=== PATIENT | female | born 1990 ===

== ENCOUNTER 2018-11-28 18:17 | Inpatient (IN) | payer OTHER ==
[2018-11-28] MEDS ORDERED: Morphine 4 MG/ML VIAL IVP STA (20:02)
[2018-11-28] MEDS ORDERED: Sodium Chloride 0.9% 1,000 ML IV STA (20:02)
[2018-11-28 20:37] LABS: SQUAMOUS EPITHIAL 3 /hpf (0-5); URINE BILIRUBIN NEGATIVE (NEGATIVE); URINE BLOOD SMALL (NEGATIVE); URINE CLARITY SLIGHTY-CLOUDY (Clear); URINE COLOR YELLOW (YELLOW); URINE GLUCOSE (UA) NEG (NEGATIVE); URINE LEUKOCYTE ESTERASE MOD Leu/uL (Negative); URINE PROTEIN 30 mg/dL (NEGATIVE); URINE UROBILINOGEN 0.2-1.0 mg/dL (0.2-1.0)
--- NOTE | 2018-11-28 20:45 | ED PDOC ---
HPI: Abdomen Time Seen by Provider: 11/28/18 19:50 Chief Complaint (Nursing): Lower Extremity Problem/Injury Chief Complaint (Provider): Abdominal Pain History Per: Patient History/Exam Limitations: no limitations Onset/Duration Of Symptoms: Days (x 1) Current Symptoms Are (Timing): Still Present Location Of Pain/Discomfort: RLQ, LLQ Quality Of Discomfort: "Pain" Associated Symptoms: Nausea Additional Complaint(s): 28 year old female with a history of ovarian cyst presents to the ED with wor sening lower abdominal pain. Patient is scheduled for surgery with Dr. Guevara to remove ovarian cyst, but pain became severe today and he decided to send her here for evaluation. She is also complaining of nausea. Provider spoke to Dr. Guevara prior to seeing patient and he requested labs, MRI, bowel prep and NPO prior to surgery. Denies vomiting. PMD: Dr. Guevara Past Medical History Reviewed: Historical Data, Nursing Documentation, Vital Signs Vital Signs: Last Vital Signs Temp 99.0 F 11/28/18 19:54 Pulse 73 11/28/18 19:54 Resp 16 11/28/18 19:54 BP 117/73 11/28/18 19:54 Pulse Ox 100 11/28/18 19:54 - Medical History PMH: Denies: Chronic Kidney Disease Other PMH: endometriosis and ovarian cysts - Surgical History Surgical History: No Surg Hx - Family History Family History: States: Unknown Family Hx - Social History Current smoker - smoking cessation education provided: Yes (Light Smoker < 10 cigarettes per day) - Immunization History Hx Tetanus Toxoid Vaccination: No Hx Influenza Vaccination: No Hx Pneumococcal Vaccination: No - Home Medications Home Medications: Ambulatory Orders Medication Instructions Recorded oxyCODONE/Acetaminophen [Percocet 1 ea PO Q4 PRN #30 tab 11/29/18 5/325 mg Tab] - Allergies Allergies/Adverse Reactions: Allergies Allergy/AdvReac Type Severity Reaction Status Date / Time No Known Allergies Allergy Verified 11/28/18 20:01 Review of Systems ROS Statement: Except As Marked, All Systems Reviewed And Found Negative Gastrointestinal: Positive for: Nausea, Abdominal Pain (worsening lower abdominal pain). Negative for: Vomiting, Diarrhea, Constipation, Melena, Hematochezia, Hematemesis Physical Exam - Reviewed Nursing Documentation Reviewed: Yes Vital Signs Reviewed: Yes - Physical Exam Appears: Positive for: No Acute Distress, Uncomfortable Head Exam: Positive for: ATRAUMATIC, NORMAL INSPECTION, NORMOCEPHALIC Skin: Positive for: Normal Color, Warm, Dry Eye Exam: Positive for: EOMI, Normal appearance, PERRL Neck: Positive for: Normal, Painless ROM, Supple Cardiovascular/Chest: Positive for: Regular Rate, Rhythm. Negative for: Murmur Respiratory: Positive for: Normal Breath Sounds. Negative for: Wheezing, Respiratory Distress Gastrointestinal/Abdominal: Positive for: Tenderness (lower abdominal tenderness bilaterally). Negative for: Mass, Distended Back: Positive for: Normal Inspection. Negative for: L CVA Tenderness, R CVA Tenderness Extremity: Positive for: Normal ROM (x 4). Negative for: Deformity, Swelling Neurologic/Psych: Positive for: Alert, Oriented (x 3). Negative for: Motor/Sensory Deficits - Laboratory Results Result Diagrams: 11/28/18 20:20 11/28/18 20:20 - ECG O2 Sat by Pulse Oximetry: 100 (RA) Pulse Ox Interpretation: Normal Medical Decision Making Medical Decision Makin:02 MDM: workup for rupture ovarian cyst Surgery in the morning Unable to get MRI overnight. Therefore, CT of Abdomen and pelvis ordered. Dr. Guevara is aware of this. Labs, NPO diet, morphine for pain control. 22:36 Labs reviewed and reveal UTI. Will start patient on Bactrim. Labs otherwise stable. She just went to CT. Upon return, will begin bowel prep. Admitted under Dr. Guevara. Pain controlled at this time. Scribe Attestation: Documented by Triny Bailey acting as a scribe for Roxi Melgar MD Provider Scribe Attestation: All medical record entries made by the Scribe were at my direction and personally dictated by me. I have reviewed the chart and agree that the record accurately reflects my personal performance of the history, physical exam, medical decision making, and the department course for this patient. I have also personally directed, reviewed, and agree with the discharge instructions and disposition. Disposition - Clinical Impression Clinical Impression: Ovarian cyst, Urinary tract infection - Patient ED Disposition Is Patient to be Admitted: Yes - Disposition Disposition Time: 22:36 Condition: FAIR - Pt Status Changed To: Hospital Disposition Of: Inpatient - Admit Certification Admit to Inpatient:: After my assessment, the patient will require hospitalization for at least two midnights. This is because of the severity of symptoms shown, intensity of services needed, and/or the medical risk in this patient being treated as an outpatient.
[2018-11-28] MEDS ORDERED: Morphine 4 MG/ML VIAL ONE (20:52)
[2018-11-28 21:13] LABS: PROTHROMBIN TIME 11.7 Seconds (9.8-13.1)
[2018-11-28 21:14] LABS: BASO % 0.4 % (0.0-2.0); EOS # 0.1 K/uL (0.0-0.7); EOS % 1.2 % (0.0-4.0); HEMOGLOBIN 13.6 g/dL (12.0-16.0); LYMPH # 2.1 K/uL (1.0-4.3); LYMPH % 38.4 % (20.0-40.0); MEAN CELL VOLUME 91.7 fl (81.0-99.0); MEAN CORPUSCULAR HEMOGLOBIN 30.1 pg (27.0-31.0); MEAN CORPUSCULAR HGB CONC 32.9 g/dL (33.0-37.0); MEAN PLATELET VOLUME 10.2 fl (7.2-11.7); MONO # 0.3 K/uL (0.0-0.8); MONO % 6.2 % (0.0-10.0); NEUT # 2.9 K/uL (1.8-7.0); NEUT % 53.8 % (50.0-75.0); NRBC % 0.2 % (0.0-0.0); RBC 4.5 Mil/uL (3.80-5.20); RED CELL DISTRIBUTION WIDTH 13.9 % (11.5-14.5); WHITE BLOOD COUNT 5.3 K/uL (4.8-10.8)
[2018-11-28 21:15] LABS: PARTIAL THROMBOPLASTIN TIME 33.4 Seconds (25.6-37.1)
[2018-11-28 21:31] LABS: BLOOD UREA NITROGEN 16 mg/dl (7-17); CALCIUM 9.1 mg/dL (8.4-10.2); GFR NON-AFRICAN AMERICAN > 60
[2018-11-28] MEDS ORDERED: Tmp-Smz 800 mg-160 mg DS Tab PO STA (22:12)
[2018-11-28] MEDS ORDERED: Magnesium Citrate Oral SOL (300 ml) PO ONE (22:57)
[2018-11-28] MEDS ORDERED: Sodium Chloride 0.9% 50 ML IV ONE (23:00)
[2018-11-28] MEDS ORDERED: Iohexol 300 100 ML IJ ONE (23:00)
[2018-11-28] MEDS ORDERED: Tmp-Smz 800 mg-160 mg DS Tab ONE (23:27)
[2018-11-28] MEDS ORDERED: Magnesium Citrate Oral SOL (300 ml) ONE (23:29)
[2018-11-29] MEDS ORDERED: Lactated Ringer's 1,000 ML IV SCH ×2 (02:15→15:45)
[2018-11-29] MEDS: Morphine 4 MG/ML VIAL IVP PRN (02:43)
--- NOTE | 2018-11-29 09:19 | CARD ---
APPROVED REPORT Date of service: 11/28/2018 EKG Measurement Heart [id number] <Conclusion> Normal sinus rhythm Normal ECG
--- NOTE | 2018-11-29 09:40 | CP.PCM.HP ---
History of Present Illness - History of Present Illness History of Present Illness: H&P for Dr. Guevara 28F pmhx significant for severe periods w/ heavy flow starting at age 11 presents to [facility] ED for continued abdominal pain and numbness and tingling going down the right leg that started 1 week ago. Symptoms have progressively been worsening. Abdominal pain has been worked up and was given numerous medications, however symptoms have not subsided. Pain is described as severe throughout the entire abdomen localize din lower abdomen. Patient states such severe body pain an aches even while walking; to help her breathe she has to lift her breasts to relieve pain. Abdominal and chest discomfort remains positional. sometimes feels like her organs are moving and hitting each other. Currently takes OCP to help regulate her period. Of note patient has been seen by numerous doctors and in 2015 patient underwent a laparoscopic procedure, per patient, surgeon found cell growth, endometriosis lining the distal esophagus. Occasionally has changes in urinary habits. Denies: fevers, chills, nausea, vomiting, shortness of breath 12 pt ROS conducted, negative otherwise stated above PMH: Endometriosis, heavy and painful periods, ruptured cystic ovaries (2012) PSH: Laparoscopic abdominal surgery (2015 at [place]) ALL: NKDA SocialHx: + Tobacco use, smokes 4 cigarettes/day for approx 2 years, denies etoh, recreational drug use Meds: OCP, Kasey's wart, Valarian root Present on Admission - Present on Admission Any Indicators Present on Admission: No Review of Systems - Review of Systems All systems: reviewed and no additional remarkable complaints except - Constitutional Constitutional: As Per HPI Past Patient History - Past Medical History & Family History Past Medical History?: Yes - Past Social History Smoking Status: Light Smoker < 10 Cigarettes Daily - CARDIAC Hx Cardiac Disorders: No - PULMONARY Hx Respiratory Disorders: No - NEUROLOGICAL Hx Neurological Disorder: No - HEENT Hx HEENT Problems: No - RENAL Hx Chronic Kidney Disease: No - ENDOCRINE/METABOLIC Hx Endocrine Disorders: No - HEMATOLOGICAL/ONCOLOGICAL Hx Blood Disorders: No Hx AIDS: No Hx Human Immunodeficiency Virus (HIV): No - INTEGUMENTARY Hx Dermatological Problems: No - MUSCULOSKELETAL/RHEUMATOLOGICAL Hx Musculoskeletal Disorders: No Hx Falls: No - GASTROINTESTINAL Hx Gastrointestinal Disorders: No - GENITOURINARY/GYNECOLOGICAL Hx Genitourinary Disorders: No Hx Hematuria: No Hx Sexually Transmitted Disorders: No Other/Comment: Endometriosis - PSYCHIATRIC Hx Psychophysiologic Disorder: No Hx Substance Use: Yes Other/Comment: Marijuana weekly- last used last week - SURGICAL HISTORY Hx Surgeries: Yes Other/Comment: endometriosis - ANESTHESIA Hx Anesthesia: Yes Hx Anesthesia Reactions: No Has any member of the family had a problem w/ anesthesia?: No Meds Allergies/Adverse Reactions: Allergies Allergy/AdvReac Type Severity Reaction Status Date / Time No Known Allergies Allergy Verified 11/28/18 20:01 Physical Exam - Constitutional Appears: Non-toxic, No Acute Distress - Head Exam Head Exam: ATRAUMATIC - Eye Exam Eye Exam: EOMI. absent: Scleral icterus - ENT Exam ENT Exam: Mucous Membranes Moist - Respiratory Exam Respiratory Exam: NORMAL BREATHING PATTERN. absent: Accessory Muscle Use, Respiratory Distress - Cardiovascular Exam Cardiovascular Exam: REGULAR RHYTHM. absent: Bradycardia, Tachycardia - GI/Abdominal Exam GI & Abdominal Exam: Distended (mild distention), Soft, Tenderness (tender to palpation entire lower abdomen). absent: Firm, Guarding, Hernia, Mass Additional comments: former 3 incisions well healed - Extremities Exam Extremities exam: Positive for: normal inspection - Neurological Exam Neurological exam: Alert, Oriented x3 - Skin Skin Exam: Intact, Warm Results - Vital Signs Recent Vital Signs: Last Vital Signs Temp 97.8 F 11/29/18 08:50 Pulse 60 11/29/18 08:50 Resp 18 11/29/18 08:50 BP 97/53 L 11/29/18 08:50 Pulse Ox 100 11/29/18 08:50 - Labs Result Diagrams: 11/28/18 20:20 11/28/18 20:20 Labs: Laboratory Results - last 24 hr 11/28/18 11/28/18 11/28/18 20:18 20:20 20:20 WBC 5.3 RBC 4.50 Hgb 13.6 Hct 41.3 MCV 91.7 MCH 30.1 MCHC 32.9 L RDW 13.9 Plt Count 178 MPV 10.2 Neut % (Auto) 53.8 Lymph % (Auto) 38.4 [place] % (Auto) 6.2 Eos % (Auto) 1.2 Baso % (Auto) 0.4 Neut # (Auto) 2.9 Lymph # (Auto) 2.1 [place] # (Auto) 0.3 Eos # (Auto) 0.1 Baso # (Auto) 0.0 PT INR APTT Sodium 141 Potassium 3.8 Chloride 103 Carbon Dioxide 27 Anion Gap 15 BUN 16 Creatinine 1.0 Est GFR ( Amer) > 60 Est GFR (Non-Af Amer) > 60 Random Glucose 81 Calcium 9.1 Urine Color Yellow Urine Clarity Slighty-cloudy Urine pH 5.0 Ur Specific [place] 1.025 Urine Protein 30 Urine Glucose (UA) Neg Urine Ketones Negative Urine Blood Small Urine Nitrate Negative Urine Bilirubin Negative Urine Urobilinogen 0.2-1.0 Ur Leukocyte Esterase Mod Urine RBC (Auto) 7 H Urine Microscopic WBC 12 H Ur Squamous Epith Cells 3 Blood Type Antibody Screen BBK History Checked 11/28/18 11/28/18 20:20 20:20 WBC RBC Hgb Hct MCV MCH MCHC RDW Plt Count MPV Neut % (Auto) Lymph % (Auto) [place] % (Auto) Eos % (Auto) Baso % (Auto) Neut # (Auto) Lymph # (Auto) [place] # (Auto) Eos # (Auto) Baso # (Auto) PT 11.7 INR 1.0 APTT 33.4 Sodium Potassium Chloride Carbon Dioxide Anion Gap BUN Creatinine Est GFR ( Amer) Est GFR (Non-Af Amer) Random Glucose Calcium Urine Color Urine Clarity Urine pH Ur Specific [place] Urine Protein Urine Glucose (UA) Urine Ketones Urine Blood Urine Nitrate Urine Bilirubin Urine Urobilinogen Ur Leukocyte Esterase Urine RBC (Auto) Urine Microscopic WBC Ur Squamous Epith Cells Blood Type B POSITIVE Antibody Screen Negative BBK History Checked No verified bt Assessment & Plan - Assessment and Plan (Free Text) Assessment: 28F w/ endometriosis Plan: - Plan for OR today - NPO - IVF - serial abx exams - analgesia and anti-emetic PRN - d/w Dr. Guevara Surgical attending [place] PGY2
[2018-11-29] MEDS ORDERED: Propofol 10 mg/ml Inj (20 ML) ONE (11:11)
[2018-11-29] MEDS ORDERED: Lidocaine 4% (Laryng-O-Jet) Kit MM ONE (11:11)
[2018-11-29] MEDS ORDERED: Rocuronium 10 mg/ml (5 ml) ONE (11:11)
[2018-11-29] MEDS ORDERED: Succinylcholine Chloride 20 mg/ml Syr (5 ml) IV ONE (11:15)
[2018-11-29] MEDS ORDERED: Midazolam 2 MG/2 ML VIAL ONE (11:15)
[2018-11-29] MEDS ORDERED: ePHEDrine 50 mg/ml Inj ONE (11:15)
[2018-11-29] MEDS ORDERED: Bupivacaine 0.5% Inj(30mL) ONE (12:06)
[2018-11-29] MEDS ORDERED: Lactated Ringer's 1,000 ML IV ONE ×3 (12:20→15:32)
[2018-11-29] MEDS ORDERED: Dexamethasone 4 mg/1 ml ONE (13:07)
--- NOTE | 2018-11-29 13:19 | CT ---
Date of service: 11/28/2018 PROCEDURE: CT Abdomen and Pelvis with and without intravenous contrast HISTORY: pelvis pain COMPARISON: None available TECHNIQUE: Axial images of the abdomen were obtained in the pre contrast, portal venous and delayed phases of enhancement. Coronal and sagittal reformats were generated. Contrast dose: 85 cc Omnipaque 300 Radiation dose: Total exam DLP = 367.62 mGy-cm. This CT exam was performed using one or more of the following dose reduction techniques: Automated exposure control, adjustment of the mA and/or kV according to patient size, and/or use of iterative reconstruction technique. FINDINGS: LOWER THORAX: Unremarkable. LIVER: Unremarkable. No gross lesion or ductal dilatation. GALLBLADDER AND BILE DUCTS: Unremarkable. PANCREAS: Unremarkable. No gross lesion or ductal dilatation. SPLEEN: Unremarkable. ADRENALS: Unremarkable. No mass. KIDNEYS AND URETERS: Unremarkable. No hydronephrosis. No solid mass. VASCULATURE: Unremarkable. No aortic aneurysm. No aortic atherosclerotic calcification or mural plaque present. BOWEL: Circumferential mural thickening of what is either the duodenal bulb or the distal gastric antrum consistent with nonspecific antritis/duodenitis. The absence of oral contrast limits evaluation no bowel obstruction. No other abnormal bowel loops. APPENDIX: Appendicitis normal appendix PERITONEUM: Unremarkable. No free fluid. No free air. LYMPH NODES: Unremarkable. No enlarged lymph nodes. BLADDER: Poorly distended. Grossly unremarkable. REPRODUCTIVE: Normal uterus. Enlarged ovaries bilaterally. Recommend correlation with pelvic ultrasound examination to exclude ovarian masses. BONES: No acute fracture. OTHER FINDINGS: None. IMPRESSION: Enlarged ovaries. Recommend correlation with pelvic ultrasound to exclude ovarian masses. Nonspecific antritis versus duodenitis. Evaluation is limited by the absence of oral contrast administration. No other significant abnormality identified. The preliminary findings for this examination were reported by [facility] at 12:28 a.m. on 11/29/2018. There is concurrence of this report with the preliminary findings.
--- NOTE | 2018-11-29 14:04 | RAD ---
Date of service: 11/28/2018 HISTORY: possible admission COMPARISON: No prior. FINDINGS: LUNGS: No active pulmonary disease. PLEURA: No significant pleural effusion identified, no pneumothorax apparent. CARDIOVASCULAR: No atherosclerotic calcification present Normal. OSSEOUS STRUCTURES: No significant abnormalities. VISUALIZED UPPER ABDOMEN: Normal. OTHER FINDINGS: None. IMPRESSION: No active disease.
[2018-11-29] MEDS ORDERED: Neostigmine 1:1000 (1 mg/ml) Inj ONE (14:36)
[2018-11-29] MEDS ORDERED: Oxycodone/Acetaminophen 5/325 mg Tab PO PRN (15:38)
[2018-11-29] MEDS: Lactated Ringer's 1,000 ML IV SCH ×2 (16:11→21:37)
[2018-11-29] MEDS ORDERED: HYDROmorphone 0.5 mg/0.5 ml ISec ONE (17:25)
[2018-11-30] MEDS: Morphine 4 MG/ML VIAL IVP PRN ×2 (02:05→07:44)
[2018-11-30] MEDS: Lactated Ringer's 1,000 ML IV SCH (03:38)
[2018-11-30 04:49] VITALS: O2SAT 100
[2018-11-30 06:31] LABS: BASO % 0.2 % (0.0-2.0); EOS % 0.2 % (0.0-4.0); HEMOGLOBIN 10.5 g/dL (12.0-16.0); LYMPH # 1.6 K/uL (1.0-4.3); LYMPH % 24.9 % (20.0-40.0); MEAN CELL VOLUME 91.6 fl (81.0-99.0); MEAN CORPUSCULAR HEMOGLOBIN 30.2 pg (27.0-31.0); MEAN CORPUSCULAR HGB CONC 32.9 g/dL (33.0-37.0); MEAN PLATELET VOLUME 9.9 fl (7.2-11.7); MONO # 0.4 K/uL (0.0-0.8); MONO % 6.5 % (0.0-10.0); NEUT # 4.5 K/uL (1.8-7.0); NEUT % 68.2 % (50.0-75.0); RBC 3.47 Mil/uL (3.80-5.20); RED CELL DISTRIBUTION WIDTH 14.2 % (11.5-14.5); WHITE BLOOD COUNT 6.5 K/uL (4.8-10.8)
[2018-11-30 06:42] LABS: BLOOD UREA NITROGEN 7 mg/dl (7-17); CALCIUM 8.3 mg/dL (8.4-10.2); GFR NON-AFRICAN AMERICAN > 60
[2018-11-30 08:40] VITALS: BP 116/63; RESP 20
[2018-11-30 13:08] VITALS: PULSE 78; TEMP 99
--- NOTE | 2018-12-03 10:05 | OP ---
PROCEDURE DATE: 11/29/2018 SURGEON: Sundar Guevara MD CORRECTIONAL GUARD: Reg Santiago MD ANESTHESIOLOGIST: Francisco BALDWIN, Adry / Saúl BALDWIN, Morgan TYPE OF ANESTHESIA: General endotracheal. PREOPERATIVE DIAGNOSES: 1.acute abdominal pain 2) pelvic massess rule out ovarian torsions POSTOPERATIVE DIAGNOSES: 1. as above 2) severe pelvic endometriosis PROCEDURES PERFORMED: EMERGENCY 1. Exam under anesthesia. 2. Video assisted hysteroscopy. 3. Cystoscopy. 4. Bilateral ureteral catheterization and injection of IC-Green dye. 5. Robotic da Zuleyka operative laparoscopy. 6. Treatment of endometriosis. 7. Excision of endometriosis. 8. Bilateral ureterolysis. 9. Bilateral ovariolysis. 10: bilateral ovarian cystectomy Dr. Santiago : excision of intestinal and appendectomy COMPLICATIONS: None. SAMPLES SENT: 1. Left Uterosacral l endometriosis. 2. Left periureteral endometriosis. 3. Right periureteral endometriosis. 4. Right uterosacral endometriosis. 5. Left and right ovarian fossa endometriosis. 6. Iliac endometriosis. 7. Posterior cervical endometriosis. 8. Rectal endometriosis, anterior. 9) Cul de sac endometriosis INDICATION FOR THE PROCEDURE AND CONSENT: The patient came via the emergency room with severe abdominal pain . The patient had a long history of pelvic pain, dysmenorrhea, dyspareunia, abdominal pain, and bladder pain. The patient had been thoroughly evaluated and counseled regarding the pros and cons of the procedure, the reasonable alternatives, and possible complications. She understood and accepted the risks involved. Literature was provided to the patient. The patient was understanding and given her history and per surgical exam, she was at high risk in an average patient. She accepted all the risks involved, and all the questions had been answered to her satisfaction. FINDINGS OF SURGERY: Genitalia: Normal external genitalia, cervix without lesion and polyps. Hysteroscopy: Hysteroscopy shows a clear uterine cavity with no polyps or masses noticed. Cystoscopy: The cystoscopy was performed to rule out endometriosis and also any interstitial cystitis and also injury. The bladder was normal with no evidence of stone, trigonitis, or cystitis. A positive jet flow was identified in both ureters. Laparoscopy: The upper abdomen appeared to be normal. Gallbladder was normal. Liver edges appeared to be normal. Ascending colon and transverse were normal. There was evidence of adhesions, fibrosis, and endometriosis of the rectovaginal and pelvic sidewalls. Two large masses were seen in the ovaries The appendix appeared to be enlarged . There was also evidence of mild hydroureters. DESCRIPTION OF THE PROCEDURE: Initiation of the case: After adequate anesthesia was obtained, the patient was placed in the dorsal lithotomy position, and with extreme care, placement of the patient with hyperextension and hyperflexing of the hips. At this point, the patient was prepped and draped. The surgeon was gowned and gloved. A timeout was taken according to the hospital procedure and the procedure was started. At this point, we performed cystoscopy, bilateral ureteral catheterization. A cystoscope was inserted into the bladder under direct visualization and the bladder was visualized. The bladder was free of lesions and tumors. There was no evidence of interstitial cystitis, and there was only mild amount of trigonitis. At this point, both ureters were identified and appeared to be in their normal anatomical position. At this point, utilizing an open 5-Thai open-ended catheter, the left ureter was catheterized all the way to the distal ureter, and 5 mL of IC-Green was injected into this ureter. Similarly, the contralateral ureter was catheterized all the way to the distal ureter, and 5 mL of IC-Green was injected into the distal ureter. At this point, the stents were removed, and the cystoscope was removed, and the 16-Thai Lentz was inserted into the bladder. At this point, we proceeded with a hysteroscopy. A speculum was placed into vagina, and the anterior lip of the cervix was grasped. The cervix was dilated, and a hysteroscope was inserted into the cavity. The cavity appeared to be of normal size with no evidence of polyps, cysts, adenomyosis, or fibroids. At this point, we proceeded with placement of a trocar and docking of the da Zuleyka Xi robot. The surgeon was re-gowned and gloved, and open laparoscopy was performed by making incision in the umbilicus and the fascia was incised. The peritoneum was entered in a blunt fashion, and the cannula was inserted under direct visualization. The abdomen was insufflated, and under direct visualization, three additional ports were inserted in the left upper quadrant, left mid quadrant, and right upper quadrant. At this point, the da Zuelyka Xi robot was brought into the field and docked, and the instruments were inserted under direct visualization. All this with extreme care not to injure the bowel or another area. As per dictation, the upper abdomen appeared to be normal with no evidence of any lesions. At this point, we proceeded with a left ureterolysis. The ureter appeared to be dilated and was clearly identified utilizing IC-Green fluorescent technology. Anesthesia was made in the peritoneum at the top of the pelvic brim, and the incision was then carried down all the way opening the peritoneum all the way down from the pelvic brim, all the way down to the ovarian fossa, extending the incision below the ovary. It was a progressive dissection where the ureter was progressively lateralized and peritoneum was medialized, thus freeing the ureter all the way down to the cross of the uterine vessels. After this was done, the ureter was freed and lateralized, and a larger peritoneum which had been opened, was excised, and sent to pathology. At this point, with the aid of very slow process, I was able to elevate the ovary and proceed with ovariolysis. At this point, we proceeded with a left ovariolysis. The left ovary was adherent to the posterior aspect of the uterus. It was gently dissected in a step by step way. It was peeled off, the ovarian fossa, andan area of extensive fibrosis and endometriosis was exposed. there was a massive endometrima planted deeply in the left pararectal space . At this point, we proceeded with a left ovarian cystectomy After identifying the ureter we proceeded with elevating the ovary , the endometioma was drained and the endometriosis cyst wall was progressively dissected off the ovary and sent to pathology . At this point, we proceeded with a right ureterolysis. The ureter was identified again utilizing fluorescent technology on the right hand side and retroperitoneal space was entered, and a full dissection was performed,entering the retroperitoneal space and dissecting the ureter, removing the ureter laterally and the peritoneum medially. A full dissection was performed all the way down to the ovarian fossa and the crossing of the uterine arteries. An area of peritoneum containing endometriosis was dissected and sent to Pathology. At this point, we proceeded with a right ovariolysis. The right ovary was adherent to the peritoneum. It was gently elevated progressively, and dissected off from the peritoneal area. All this done with extreme care to preserve vascularization to the ovary. At this point, we proceeded with a right ovarian cystectomy After identifying the ureter we proceeded with elevating the ovary , the endometioma was drained and the endometriosis cyst wall was progressively dissected off the ovary and sent to pathology . At this point, we proceeded with treatment of endometriosis and excision of endometriosis. On the left hand side, fibrosis, especially in the left ovarian fossa was excised. In a very progressive step by step fashion, we dissected off fibrosis containing endometriosis and freed up the whole area. The ureters which had been lateralized. Areas of fibrosis and endometriosis were also identified in the posterior cul-de-sac and in the rectovaginal space which was also affected with endometriosis and fibrosis. At this point, we proceeded with the excision of perirectal endometriosis. The rectovaginal area had significant fibrosis and additional endometriosis was dissected from the posterior aspect of the uterus, and the rectovaginal space was entered at the level of the peritoneal reflection. All this done making sure that no damage to the rectum was performed. At this point, endometriosis was also excised from the right uterosacral area which also was affected by fibrosis and endometriosis. At this point we handed the console to Dr. Santiago for the continuation of the procedure. We checked for hemostasis and organ integrity and all was normal. At this point, the da Zuleyka Xi robot was removed. The abdomen was desufflated, and the incisions were closed in layers with 0 PDS for the fascia and 4-0 Monocryl for the skin. At the end of the procedure, all tips and instrument counts were correct. The patient tolerated the procedure well and was taken to the recovery room in excellent condition. Ismael BALDWIN, Sundar GORDON
--- NOTE | 2018-12-03 10:16 | OP ---
OPERATIVE REPORT -Operative Report Date of Procedure: 11/29/2018 Surgeon: Reg Santiago MD [employer] Superintendent: Sundar Guevara MD Anesthesiologist: Adry Singh MD Anesthesia: General Endo Pre-op Diagnosis: abdominal pain Post-op Diagnosis: same Procedure/Operation Description: 1-excision multiple (times two) perirectal endometriosis. 2-appendectomy. Brief History: This 28 year old woman had already been brought to the operating room by Dr. Guevara when he requested intraoperative surgical consultation. Description of the Procedure: The patient had already been brought to the operating room by Dr. Guevara (separate dictation). After taking control of the robotic console the rectal lesion was incised with electrocautery and with blunt and sharp dissection was completely excised en-bloc and sent to pathology separately. The second lesionn was excised in a similar manner and sent to pathology. Then the appendix was retracted anteriorly and mesentery was desiccated with electrocautery to the base. Using three 3-0 vicryl endoloops the appendix was ligated and transected. This specimen was sent separately to pathology. Hemostasis was deemed adequate. The operation as then turned over to Dr. Guevara (separate dictation Dr. Guevara). Estimated Blood Loss: 4cc Complications: none Specimen: appendix Discharge & Condition: stable MTDD
== END 2018-11-30 13:30 | disposition home or self-care (01) | DRG 742 ==
LOC: H.ER 18:17 → H.ERHOLD 22:36 → H.PEDS 11-29 02:22
PROVIDERS: ADMIT Obstetrics & Gynecology Reproductive Endocrinology; ATTEND Obstetrics & Gynecology Reproductive Endocrinology
PROC: 0TN74ZZ Release Left Ureter, Percutaneous Endoscopic Approach (ICD-10-PCS; 2018-11-29)
PROC: 0TN64ZZ Release Right Ureter, Percutaneous Endoscopic Approach (ICD-10-PCS; 2018-11-29)
PROC: 0T788DZ Dilation of Bilateral Ureters with Intraluminal Device, Via Natural or Artificial Opening Endoscopic (ICD-10-PCS; 2018-11-29)
PROC: 0DTJ4ZZ Resection of Appendix, Percutaneous Endoscopic Approach (ICD-10-PCS; 2018-11-29)
PROC: 8E0W8CZ Robotic Assisted Procedure of Trunk Region, Via Natural or Artificial Opening Endoscopic (ICD-10-PCS; 2018-11-29)
PROC: 0UB24ZZ Excision of Bilateral Ovaries, Percutaneous Endoscopic Approach (ICD-10-PCS; principal; 2018-11-29 11:00)
PROC: 0U5B4ZZ Destruction of Endometrium, Percutaneous Endoscopic Approach (ICD-10-PCS; 2018-11-29 11:00)
PROC: 0UN24ZZ Release Bilateral Ovaries, Percutaneous Endoscopic Approach (ICD-10-PCS; 2018-11-29 11:00)
DX: N80.1 Endometriosis of ovary (principal); N39.0 Urinary tract infection, site not specified; N83.02 Follicular cyst of left ovary; N83.01 Follicular cyst of right ovary; N80.0 Endometriosis of uterus; N80.3 Endometriosis of pelvic peritoneum; N80.5 Endometriosis of intestine; N73.6 Female pelvic peritoneal adhesions (postinfective); N93.9 Abnormal uterine and vaginal bleeding, unspecified; R10.2 Pelvic and perineal pain; F12.90 Cannabis use, unspecified, uncomplicated; F17.210 Nicotine dependence, cigarettes, uncomplicated